=== PATIENT | male | born 1960 | race Caucasian/White ===

== ENCOUNTER 2020-11-05 11:10 | Emergency (ER) | payer BC ==
[2020-11-05] MEDS ORDERED: Diphtheria,Pertussis(Acell),Tetanus Vaccine 0.5 ML Syringe IM ONE (11:37)
--- NOTE | 2020-11-05 11:57 | EDM.PDOC ---
ED HPI GENERAL MEDICAL PROBLEM - General Chief Complaint: Upper Extremity Injury/Pain Stated Complaint: SMASHED LT POINTER FINGER WITH HAMMER Time Seen by Provider: 11/05/20 11:16 Source of Information: Reports: Patient, RN Notes Reviewed History Limitations: Reports: No Limitations - History of Present Illness INITIAL COMMENTS - FREE TEXT/NARRATIVE: Patient is a 60-year-old male presenting to the emergency department with complaints of pain a laceration to the distal aspect of his left index finger. States he was working on a truck and hit his finger with a hammer. He is able to move the finger but states with movement it feels like "bones are grinding ". He is unsure when his last tetanus vaccination was. Left Finger-Index Pain Score (Numeric/FACES): 4 - Related Data Allergies Allergy/AdvReac Type Severity Reaction Status Date / Time No Known Allergies Allergy Verified 11/05/20 11:17 Home Meds: Home Meds Warfarin Sodium [Jantoven] 5 mg PO SUTUWETHSA 11/05/20 [History] Warfarin [Coumadin] 7.5 mg PO MOFR 11/05/20 [History] cephALEXin [Cephalexin] 500 mg PO Q6H #19 tablet 11/05/20 [Rx] Past Medical History Cardiovascular History: Reports: Blood Clots/VTE/DVT Social & Family History - Tobacco Use Tobacco Use Status *Q: Never Tobacco User Second Hand Smoke Exposure: No - Caffeine Use Caffeine Use: Reports: Coffee - Recreational Drug Use Recreational Drug Use: No Review of Systems - Review of Systems Review Of Systems: Comprehensive ROS is negative, except as noted in HPI. ED EXAM, GENERAL - Physical Exam Exam: See Below General Appearance: Alert, WD/WN, No Apparent Distress Respiratory/Chest: No Respiratory Distress, Lungs Clear, Normal Breath Sounds, No Accessory Muscle Use, Chest Non-Tender Cardiovascular: Normal Peripheral Pulses, Regular Rate, Rhythm, No Edema, No Gallop, No JVD, No Murmur, No Rub Extremities: Other (2 cm laceration to the dorsal aspect of the left index finger proximal to the nail. scant active bleeding. No obvious deformity.) Neurological: Alert, Oriented, CN II-XII Intact, Normal Cognition, Normal Gait, Normal Reflexes, No Motor/Sensory Deficits Psychiatric: Normal Affect, Normal Mood ED TRAUMA EXTREMITY PROCEDURES - Laceration/Wound Repair Left Distal Digit - 2nd (Index) Lac/Wound Length In cm: 2 Appearance: Irregular, Mildly Contaminated Distal NVT: Neuro & Vascular Intact, No Tendon Injury Anesthetic Type: Local Local Anesthesia - Lidocaine (Xylocaine): 1% Plain Skin Prep: Chlorhexidine (Hibiciens), Saline, Sterile Drape Exploration/Debridement/Repair: Wound Explored, In a Bloodless Field, Minimal Debridement Closed With: Sutures Suture Size: 4-0 # of Sutures: 3 Sterile Dressing Applied: Provider Tetanus Status Addressed: Yes Complications: No Course - Vital Signs Last Recorded V/S: Last Vital Signs Temp 97 F 11/05/20 11:15 Pulse 70 11/05/20 11:15 Resp 16 11/05/20 11:15 BP 114/78 11/05/20 11:15 Pulse Ox 94 L 11/05/20 11:15 - Orders/Labs/Meds Meds: Medications Discontinued Medications Generic Name Dose Route Start Last Admin Trade Name Freq PRN Reason Stop Dose Admin Cephalexin 500 mg 11/05/20 13:39 11/05/20 14:21 Keflex PO 11/05/20 13:40 500 mg ONETIME ONE Administration Diphtheria/Tetanus/Acell Pertussis 0.5 ml 11/05/20 11:37 11/05/20 12:14 Boostrix IM 11/05/20 11:38 0.5 ml .ONCE ONE Administration Lidocaine HCl 10 ml 11/05/20 12:44 11/05/20 14:24 Xylocaine 1% INJECT 11/05/20 12:45 10 ml ONETIME ONE Administration - Re-Assessments/Exams Free Text/Narrative Re-Assessment/Exam: Patient is a 60-year-old male presenting to the emergency department with complaints of a laceration and pain to the distal aspect of his left index finger. States he was working on a truck and hit it with a hammer. He is not sure when his last tetanus vaccination was. I have ordered an x-ray of the left index finger as well as Boostrix Tdap vaccine. 11/05/20 14:02 X-ray shows a comminuted nondisplaced fracture of the tuft of the left index finger. 2 cm laceration was closed with a total of 3 sutures. The majority laceration was superficial with the exception of a 1 cm area that was deep enough to require sutures. Patient was started on Keflex for infection prophylaxis. First dose was given in ER. Sterile dressing was applied. We will provide him with a fingertip splint to wear for least 6 weeks. Discharge instructions as documented. Departure - Departure Time of Disposition: 14:04 Disposition: Home, Self-Care 01 Condition: Good Clinical Impression: Open fracture of tuft of distal phalanx of finger, Laceration - Discharge Information *PRESCRIPTION DRUG MONITORING PROGRAM REVIEWED*: No *COPY OF PRESCRIPTION DRUG MONITORING REPORT IN PATIENT YAS: No Prescriptions: cephALEXin [Cephalexin] 500 mg PO Q6H #19 tablet Instructions: Finger Fracture, Adult, [id number] Referrals: PCP,None [Primary Care Provider] - Forms: ED Department Discharge Additional Instructions: You were seen in the emergency department today for a laceration to your index finger after hitting your finger with a hammer. The wound was cleansed and closed with 3 sutures. These should stay intact for 7-10 days. After that time they may be removed in the clinic by a nurse. Leave the initial dressing in place for 48 hours. After that time, keep the wound clean and dry. Wash with normal soap and water twice daily. Do not submerge the wound in water. Watch for signs of infection including increased redness, swelling, or purulent drainage. If these should occur, you should be seen either in the clinic or in the emergency department as antibiotic treatment may be needed. X-ray of the finger does show that you have a nondisplaced tuft fracture of the fingertip. You have been provided with a fingertip splint. Wear this at all times for the next 4 weeks. After that time, where it as needed if there is a chance that you could hit the finger. Return to the ER as needed. Sepsis Event Note (ED) - Evaluation Sepsis Screening Result: No Definite Risk
[2020-11-05] MEDS ORDERED: Lidocaine 1% 10 ML MDV INJECT ONE (12:44)
[2020-11-05] MEDS ORDERED: Cephalexin 500 MG Cap PO ONE (13:39)
--- NOTE | 2020-11-06 09:59 | CR ---
Left second finger: 3 views of the left second finger were obtained. Comparison: No previous study. Acute fracture is identified within the distal shaft and tuft of the second finger. Alignment is close to anatomic. Soft tissue swelling is noted. Old fracture is noted off the corner base of the middle phalanx which is well corticated. No additional abnormality is appreciated. Impression: 1. Distal left second finger fracture with soft tissue swelling. 2. Other nonacute findings as noted above. Diagnostic code #3
== END 2020-11-05 14:24 | disposition home or self-care (01) ==
LOC: JD.ED 11:10
DX: S62.661B Nondisplaced fracture of distal phalanx of left index finger, initial encounter for open fracture (principal); Z23 Encounter for immunization; Z86.718 Personal history of other venous thrombosis and embolism; W27.8XXA Contact with other nonpowered hand tool, initial encounter
CPT/HCPCS: 12001; 73140; 90471; 90715; 99283; A9270; J2001

== ENCOUNTER 2024-09-24 08:09 | Day surgery (SDC) | payer MEDICARE ==
[~2024-09-24 08:09] MED LIST: HYDROmorphone 0.5 MG/0.5 ML Syringe IVPUSH PRN; Ondansetron 4 MG/2 ML SDV IVPUSH PRN; Sodium Chloride 0.9% 10 ML Syringe FLUSH PRN; fentaNYL 100 MCG/2 ML SDV IVPUSH PRN
[2024-09-24] MEDS: Lactated Ringers 1,000 ML IV SCH (08:45)
[2024-09-24] MEDS ORDERED: Ropivacaine 0.5% 5 MG/ML 30 ML SDV ONE (08:46)
[2024-09-24] MEDS ORDERED: Midazolam 1 MG/ML 2 ML SDV ONE (08:54)
[2024-09-24] MEDS ORDERED: Propofol 200 MG/20 ML SDV ONE ×2 (08:54→11:28)
[2024-09-24] MEDS ORDERED: ceFAZolin 2 GM Vial ONE (08:54)
[2024-09-24] MEDS ORDERED: Lactated Ringers 1,000 ML ONE (08:54)
[2024-09-24] MEDS ORDERED: Sodium Chloride 0.9% 10 ML Syringe FLUSH SCH (09:00)
[2024-09-24 09:23] LABS: INR 1.08; PROTHROMBIN TIME 11.4 SECONDS (9.7-12.0)
[2024-09-24 09:25] LABS: PTT,PARTIAL THROMBOPLSTIN TIME 26.5 SECONDS (21.7-31.4)
[2024-09-24] MEDS: Pregabalin 25 MG Cap PO PRN (09:33)
[2024-09-24] MEDS: oxyCODONE ER 10 MG TAB.ER PO PRN (09:33)
[2024-09-24] MEDS: Acetaminophen 325 MG Tab PO PRN (09:33)
[2024-09-24] MEDS: Tranexamic Acid 1,000 MG/10 ML Vial ONE (10:20)
[2024-09-24] MEDS: Triamcinolone Acetonide 40 MG/ML 1 ML SDV ONE (10:50)
[2024-09-24] MEDS: Bupivacaine 0.25% 10 ML SDV ONE (10:50)
[2024-09-24] MEDS: Morphine 8 MG, EPINEPHrine 0.3 MG, Cefuroxime 750 MG, Ketorolac 30 MG, Sodium Chloride ... PRN (11:20)
[2024-09-24] MEDS: Vancomycin 1 GM SDV ONE (11:20)
[2024-09-24] MEDS: oxyCODONE 5 MG Tab PO PRN (14:44)
== END 2024-09-24 16:15 | disposition home or self-care (01) ==
LOC: JD.SDS 08:09
PROVIDERS: ATTEND Orthopaedic Surgery
DX: M17.12 Unilateral primary osteoarthritis, left knee (principal); I74.5 Embolism and thrombosis of iliac artery; Z79.01 Long term (current) use of anticoagulants; Z79.82 Long term (current) use of aspirin; Z79.899 Other long term (current) drug therapy
CPT/HCPCS: 0055T; 27447; 36415; 73560; 85610; 85730; 97110; 97116; 97161; A9270; C1776; J0171; J0665; J0690; J0697; J1885; J2250; J2272; J2704; J2795; J3301; J7120; 01402; 64447; J3490

== ENCOUNTER 2025-10-18 09:27 | Day surgery (SDC) | payer MEDICARE ==
[~2025-10-18 09:27] MED LIST changes: -HYDROmorphone 0.5 MG/0.5 ML Syringe IVPUSH PRN; -Ondansetron 4 MG/2 ML SDV IVPUSH PRN; +Sodium Chloride 0.9% 10 ML Syringe FLUSH SCH; -fentaNYL 100 MCG/2 ML SDV IVPUSH PRN
[2025-10-18] MEDS: Lactated Ringers 1,000 ML IV SCH (09:50)
[2025-10-18] MEDS ORDERED: propofoL 500 MG/50 ML 50 ML ONE (10:10)
[2025-10-18] MEDS ORDERED: Ketamine HCL/NACL, ISO-OSM 50 MG/5 ML Syringe ONE (10:10)
[2025-10-18] MEDS ORDERED: fentaNYL 100 MCG/2 ML SDV ONE (10:10)
[2025-10-18 10:25] LABS: INR 1.07
[2025-10-18 10:26] LABS: PTT,PARTIAL THROMBOPLSTIN TIME 25.9 SECONDS (21.7-31.4)
[2025-10-18] MEDS ORDERED: Ondansetron 4 MG/2 ML SDV ONE (12:09)
[2025-10-18] MEDS ORDERED: Ketorolac 30 MG/ML SDV ONE (12:10)
[2025-10-18] MEDS: Morphine 8 MG, EPINEPHrine 0.3 MG, Cefuroxime 750 MG, Ketorolac 30 MG, Sodium Chloride ... PRN (12:30)
[2025-10-18] MEDS ORDERED: Lactated Ringers 1,000 ML ONE (12:57)
[2025-10-18] MEDS ORDERED: Ropivacaine 0.5% 5 MG/ML 30 ML SDV ONE (13:19)
[2025-10-18] MEDS ORDERED: Acetaminophen/HYDROcodone 325-5 MG Tab PO SCH (13:45)
== END 2025-10-18 16:53 | disposition home or self-care (01) ==
LOC: JD.SDS 09:27
PROVIDERS: ATTEND Orthopaedic Surgery
DX: M17.11 Unilateral primary osteoarthritis, right knee (principal); Z79.82 Long term (current) use of aspirin; Z79.01 Long term (current) use of anticoagulants; Z79.899 Other long term (current) drug therapy
CPT/HCPCS: 0055T; 27447; 36415; 73560; 85610; 85730; 97110; 97116; 97161; C1713; C1776; J0169; J0690; J0697; J1885; J2272; J2405; J2704; J2795; J3010; J3373; J7120; 01402; 64447; J3490